=== PATIENT | female | born 1950 | race African-American/Black ===

== ENCOUNTER 2017-01-02 12:22 | Emergency (ER) | payer MEDICARE, MEDICAID ==
[~2017-01-02] VITALS: Ht 152.4 cm; Wt 57.0 kg
[2017-01-02 12:32] VITALS: BP 115/73
== END 2017-01-02 16:46 | disposition home or self-care (01) ==
LOC: ER 12:23
DX: S92.424A Nondisplaced fracture of distal phalanx of right great toe, initial encounter for closed fracture (principal); F17.210 Nicotine dependence, cigarettes, uncomplicated; W22.01XA Walked into wall, initial encounter; Y93.89 Activity, other specified; Y92.89 Other specified places as the place of occurrence of the external cause
CPT/HCPCS: 73630; 99284

== ENCOUNTER 2019-11-28 19:47 | Emergency (ER) | payer MEDICARE, MEDICAID ==
[~2019-11-28] VITALS: Ht 152.4 cm; Wt 59.0 kg
[2019-11-28] MEDS ORDERED: ACETAMINOPHEN WITH CODEINE 300/30MG TABLET PO ONE (22:15)
[2019-11-28 22:27] VITALS: BP 121/69
== END 2019-11-28 22:27 | disposition home or self-care (01) ==
LOC: ER 19:47
DX: M79.672 Pain in left foot (principal); M54.5 Low back pain; Z98.890 Other specified postprocedural states
CPT/HCPCS: 72100; 73620; 99284